=== PATIENT | female | born 1970 | race Caucasian/White ===

== ENCOUNTER 2024-12-02 09:56 | Outpatient (OUT) | payer OTHER, SELFPAY ==
--- NOTE | 2024-12-02 09:59 | CT_ITS ---
The [address] [address] Patient Name: DOLLY GOMEZ MRN: [id number] date: 1970 Sex: F Assigned Patient Location: CT Current Patient Location: CT Accession/Order Number: [id number] Exam Date: 12/02/2024 10:39 Report Date: 12/02/2024 10:49 At the request of: MELIA RAMOS DO Procedure: CT lung screening low-dose LOW-DOSE SCREENING CHEST CT WITHOUT CONTRAST COMPARISON: 11/22/2022 CLINICAL DATA: Current smoker with 33 year history of tobacco use. Spiral axial unenhanced low-dose images were obtained through the chest. Images were reviewed using both narrow and wide window settings. This CT exam was performed using one or more following dose reduction techniques: Automated exposure control, adjustment of the mA and/or kV according to patient size, or use of iterative reconstruction technique. The heart is within normal limits for size. No pericardial effusion is seen. The ascending aorta is ectatic measuring almost 4 cm in diameter. There are similar scattered mediastinal lymph nodes. The hilar are more difficult to assess without contrast. Endplate spurring is present spine. There is minimal atelectasis or scarring. A tiny 2 mm nodule is again seen within the right middle lobe near the minor fissure (axial image 67). No developing pleural effusion, pneumothorax or pulmonary nodularity is seen. Limited cuts through the upper abdomen show gastrohepatic ligament lymph nodes. CT/CT lung screening low-dose IMPRESSION: SIMILAR NONSPECIFIC LYMPH NODES. TINY RIGHT MIDDLE LOBE NODULE, UNCHANGED. Lung RADS category 2 - benign Twelve-month low-dose CT follow-up suggested Impression dictated by: Chen Givens M.D. 12/02/2024 10:49 AM Dictation Location: [place] [address] Electronically authenticated by: [id number] Y Date: 12/02/2024 10:49
== END 2024-12-02 09:57 | disposition home or self-care (01) ==
LOC: CT 09:56
PROVIDERS: Visit Provider Internal Medicine
DX: R91.1 Solitary pulmonary nodule (principal); F17.210 Nicotine dependence, cigarettes, uncomplicated
CPT/HCPCS: 71271